=== PATIENT | male | born 1955 | race African-American/Black ===

== ENCOUNTER → 2024-03-09 06:22 | Day surgery (SDC) | payer MEDICARE, SELFPAY | LOC: GI 06:22 | PROVIDERS: ATTENDING PHYSICIAN Internal Medicine Gastroenterology; FAMILY PHYSICIAN Family Medicine | DX: R07.89 Other chest pain (principal); K22.89 Other specified disease of esophagus; K44.9 Diaphragmatic hernia without obstruction or gangrene; K25.9 Gastric ulcer, unspecified as acute or chronic, without hemorrhage or perforation | CPT/HCPCS: 43239; 88305; 88312; 88342 ==

== ENCOUNTER → 2024-05-18 12:06 | Outpatient (REF) | payer MEDICARE, SELFPAY | LOC: MRI 3T 12:06 | PROVIDERS: ATTENDING PHYSICIAN Surgery; FAMILY PHYSICIAN Family Medicine | DX: R97.20 Elevated prostate specific antigen [PSA] (principal) | CPT/HCPCS: 72197; A9575 ==

== ENCOUNTER → 2024-09-20 08:16 | Outpatient (REF) | payer MEDICARE, SELFPAY | LOC: MRI 3T 08:16 | PROVIDERS: ATTENDING PHYSICIAN Surgery; FAMILY PHYSICIAN Family Medicine | DX: R97.20 Elevated prostate specific antigen [PSA] (principal); Z80.42 Family history of malignant neoplasm of prostate | CPT/HCPCS: 72197; A9575 ==

== ENCOUNTER 2025-03-02 10:53 | Emergency (ER) | payer MEDICARE, SELFPAY ==
[2025-03-02 11:10] VITALS: BP 125/81
--- NOTE | 2025-03-02 11:30 | ED.GENMED ---
History of Present Illness
General
Chief Complaint: Head Injury
Source: patient
Exam Limitations: none
Time Seen by Provider: 03/02/25 11:30
History of Present Illness
History of Present Illness:
69-year-old male was in a hot bathtub. Got up to turn on the fan felt lightheaded and then passed out. Complaining of some mild left lateral rib pain. Feels he had this going down. No shortness of breath no anterior chest pain no headache no
neck pain no other complaints.
Past History
Past History
ED Past Medical History: HTN and Hypercholesterolemia
ED Past Surgical History: Other (Hernia repair 2017)
Social History
Tobacco: Non-smoker
Alcohol: Occasional
Drug: None
Living: alone
Employment: Employed
Review of Systems
Review of Systems
All Other Systems: Not applicable
Constitutional: Denies fever or chills
Respiratory: Denies trouble breathing
Cardiac: Denies chest pain or palpitations
Phy Exam
Physical Exam
Physical Exam:
GENERAL: Alert and oriented in no apparent distress
EYE: Orbits normal. Discharge
NECK: Supple, nontender
ENT: Pharynx without erythema
CARDIAC: Regular rate and rhythm without any obvious murmurs.
LUNGS: Clear breath sounds,normal. Very minimal left lateral chest wall tenderness near the axilla
ABDOMEN: Soft, without focal tenderness or distention
NEUROLOGICAL: Alert and oriented , grossly non-focal
SKIN: Warm and dry, no rash or lesion, no discoloration, skin intact.
MUSCULOSKELETAL: No edema,no deformity.Good color
PSYCH: Normal and appropriate interaction.
Course
Orders/Labs/Results
Orders:
Orders
03/02/25 11:15
Electrocardiogram (*1) Urgent
Reason for Study: Syncope
Head wo Contrast CT [CT Head W/o Iv Contrast] Urgent
Comment:
Reason For Exam: syncope and head strike
EKG- Treatment ONCE
03/02/25 11:42
Ribs, Left 3 View W/PA Chest CR [CR Ribs-left 3 Vw W/pa Chest] Urgent
Comment:
Reason For Exam: trauma
03/02/25 11:43
Cardiac Monitoring- Treatment ONCE
Vital Signs
Initial and Last Documented VS:
Initial Vital Signs
Temp Pulse Resp BP Pulse Ox
98.8 F 77 18 125/81 97
03/02/25 11:10 03/02/25 11:10 03/02/25 11:10 03/02/25 11:10 03/02/25 11:10
Last Documented Vital Signs
Temp Pulse Resp BP Pulse Ox
98.8 F 66 16 122/83 96
03/02/25 11:10 03/02/25 12:50 03/02/25 12:50 03/02/25 12:50 03/02/25 12:50
MDM/Problems Addressed
Differential Diagnosis Includes:
Patient describing vasovagal syncope. Likely from the hot tub. Prodromal symptoms. EKG normal. We will place on a monitor. He had labs 2 weeks ago. We will try to get these lab results before rechecking today. No reason they would have
changed in the last few weeks. CT of the head given the uncertainty of the head injury. Some lateral chest wall tenderness consistent with a fall. Highly doubt primary cardiac issue or pulmonary emboli.
*Pulse Oximetry
Patient hypoxic: no
*EKG
Interpreted by ED Provider?: Yes
Interpretation: normal
Comparison EKG: no changes
Heart Rate: 60
Rate: normal
Rhythm: sinus
[place]: normal axis
Interval: normal interval
QRS Pattern: normal QRS
Ischemia: no ischemia
*Critical Care Note
Total Time (30-74mins, 75-104mins- exclusive of procedures): Not Applicable
Update Note
Update Note:
Patient had outpatient labs a few weeks ago all within normal limits. No need to recheck now. He said no other issues or symptoms. He is currently asymptomatic ambulating well. Copy of CT report given to patient. He was monitored for an hour.
Stable for discharge to follow-up
ED Attending Note
-
Portions of this chart may have been created with voice recognition software.� Occasional wrong word or��sound alike� substitutions may have occurred due to the inherent limitations of voice recognition software.
Discharge Plan
Departure
Patient Disposition: Home (Routine Discharge)
Date of Disposition: 03/02/25
Time of Disposition: 15:11
Patient with high blood pressure during this ER visit?: Yes
Discharge Problem:
Syncopal episode, Head injury
Instructions: Head Injury in Adults (DC), Fainting in adults - ED discharge instructions, BLOOD PRESSURE
Prescriptions:
No Action
aspirin 325 MG tablet
325 mg PO DAILY
amlodipine 5 MG tablet
5 mg PO DAILY
Saw [place]
1 dose PO DAILY
Tumeric
1 cap PO DAILY
rosuvastatin 20 mg Tablet
20 mg PO DAILY
Co Q-10 300 mg Capsule
300 mg PO DAILY
Referrals:
Macario Townsend, DO [Family Provider] - Follow up in 5-7 days
Interventions
Interventions:
*Risk Screen - Suicide Last Done: 03/02/25 11:10
*General Assessment Last Done: 03/02/25 11:10
*Neglect/Abuse Screening Last Done: 03/02/25 11:10
*ED COVID-19 Vaccine History Last Done: 03/02/25 11:10
ED- Neurological Assessment Last Done: 03/02/25 13:40
ED-Skin Assessment Last Done: 03/02/25 13:40
Discharge Date and Time
Print Language: ROMANIAN
[2025-03-02 12:50] VITALS: BP 122/83
== END 2025-03-02 15:46 | disposition home or self-care (01) ==
LOC: EMR 10:53
PROVIDERS: EMERGENCY PHYSICIAN Emergency Medicine; FAMILY PHYSICIAN Family Medicine
DX: R55 Syncope and collapse (principal); S09.90XA Unspecified injury of head, initial encounter; X58.XXXA Exposure to other specified factors, initial encounter; I10 Essential (primary) hypertension; E78.00 Pure hypercholesterolemia, unspecified
CPT/HCPCS: 99284; 70450; 71101; 93005

== ENCOUNTER → 2025-05-18 11:07 | Outpatient (REF) | payer MEDICARE, SELFPAY | LOC: RCS 11:07 | PROVIDERS: ATTENDING PHYSICIAN Internal Medicine Cardiovascular Disease; FAMILY PHYSICIAN Family Medicine | DX: R55 Syncope and collapse (principal); I34.0 Nonrheumatic mitral (valve) insufficiency | CPT/HCPCS: 93306 ==

== ENCOUNTER → 2025-09-18 16:22 | Outpatient (REF) | payer MEDICARE, SELFPAY | LOC: MRI 3T 16:22 | PROVIDERS: ATTENDING PHYSICIAN Surgery; FAMILY PHYSICIAN Family Medicine | DX: R97.20 Elevated prostate specific antigen [PSA] (principal) | CPT/HCPCS: 72197; A9575 ==

== ENCOUNTER → 2025-10-31 09:14 | Outpatient (REF) | payer MEDICARE, SELFPAY | LOC: HWRAD 09:14 | PROVIDERS: ATTENDING PHYSICIAN Family Medicine | DX: R22.31 Localized swelling, mass and lump, right upper limb (principal) | CPT/HCPCS: 76882 ==